=== PATIENT | male | born 1955 | race Caucasian/White ===

== ENCOUNTER 2017-11-18 08:34 | Inpatient (IN) | payer BC ==
[~2017-11-18] VITALS: Ht 188 cm; Wt 133.9 kg
--- NOTE | ~2017-11-18 | EKG ---
[address] [place] [address] ELECTROCARDIOGRAM REPORT Name: SAM HART Room #: 210-P ADM IN M.R.#: [id number] Admission: 11/18/17 Attend Phys: Macario Yi MD Discharge: Date of : 57 Report #: [id number] THIS REPORT FOR: //name// [facility] ED Test Date: 2017-11-18 Test Time: 08:41:06 Pat Name: SAM HART Department: Room: Gender: M Facility Attendant: [facility] : 1955 Requested By: Ro Fine Order Number: [id number] MD: Trey Martinez Measurements Intervals [place] Rate: 121 P: 40 DC: 139 QRS: -18 QRSD: 100 T: 117 QT: 332 QTc: 471 Interpretive Statements Sinus tachycardia Frequent premature ventricular complexes Probable inferior infarct, age indeterminate Anteroseptal infarct, old Compared to ECG 06/13/2015 06:42:44 Ventricular premature complex(es) now present Nonspecific change in the ST and T-wave segments Electronically Signed On 11-18-2017 11:55:26 CDT by rTey Martinez [email or web address] <ELECTRONICALLY SIGNED> By: Trey Martinez MD, [facility] 11/18/17 1155 [phone] Trey Martinez MD, [facility] /EPI
--- NOTE | ~2017-11-18 | EKG ---
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1955 Requested By: Ro Fine Order Number: [id number] MD: Trey Martinez Measurements Intervals [place] Rate: 103 P: 15 IN: 140 QRS: -18 QRSD: 102 T: 69 QT: 361 QTc: 473 Interpretive Statements Sinus tachycardia Inferior infarct, old Anteroseptal infarct, old Compared to ECG 06/13/2015 06:42:44 Ventricular ectopy is no longer present Electronically Signed On 11-18-2017 11:56:45 CDT by Trey Martinez [email or web address] <ELECTRONICALLY SIGNED> By: Trey Martinez MD, [facility] 11/18/17 1156 1002 1002 Trey Martinez MD, [facility] /EPI
--- NOTE | ~2017-11-18 | HC ---
[facility] [place] [address] CONSULTATION Name: SAM HART Room #: 210-P [facility] IN M.R.#: [id number] Admission: 11/18/17 Attend Phys: Macario Yi MD Discharge: Date of : 57 Report #: [id number] THIS REPORT FOR: //name// CC: APRIL Ortiz MD REASON FOR CONSULTATION: Shortness of breath. HISTORY OF PRESENT ILLNESS: The patient is a 62-year-old gentleman with a history of coronary artery disease with bypass surgery with a left internal mammary to the LAD, sequential vein graft to the first and second marginal branches, vein graft to the right coronary with combined #25 Trifecta aortic valve replacement. He has a history of diabetes, hypertension and sleep apnea, intolerant to CPAP. He now presents with a several month history of orthopnea and paroxysmal nocturnal dyspnea. His outpatient evaluation included a CT angiogram of the chest, which was negative for pulmonary embolism. Today's episode was more pronounced than other episodes. He was found to be hypoxemic and hypertensive. He was placed on BiPAP with improvement in his oxygen saturations. He denies chest heaviness or pressure or symptoms reminiscent to what he had prior to his bypass surgery. He denies lower extremity edema. He reports being on a variety of medicines, although cannot recall what they are. He does not have them with him. No history of palpitations, near syncope or syncope. He does not check his blood pressures on a regular basis. LISTED MEDICATIONS: Include amlodipine 10 mg daily, amiodarone 200 mg daily, aspirin 81 mg daily, Wellbutrin 150 mg daily, Plavix 75 mg daily, lisinopril 40 mg daily, metformin 1000 mg daily, Toprol 50 mg twice daily, rosuvastatin 40 mg daily, Flomax 0.4 mg daily. I should mention that he is not certain which of these medicines he is taking. He is certain that he is not taking all of these, this needs to be clarified. PAST MEDICAL HISTORY: Medical records have been reviewed and include a history of a total knee replacement, diabetes, aortofemoral bypass, umbilical herniorrhaphy, cholecystectomy. SOCIAL HISTORY: He is a former smoker. He works in payroll. . FAMILY HISTORY: Notable for hypertension and diabetes. REVIEW OF SYSTEMS: All systems negative except as that noted above. PHYSICAL EXAMINATION: GENERAL: A pleasant gentleman who is alert. VITAL SIGNS: Blood pressure is 156/90, heart rate of 100 and regular. He is afebrile, 6 feet 2 inches tall, 300 pounds. [facility] [address] [place] [address] CONSULTATION Name: SAM HART Room #: 210-P [facility] IN M.R.#: [id number] Admission: 11/18/17 Attend Phys: Macario Yi MD Discharge: Date of : 57 Report #: [id number] HEENT: There are neither xanthelasma, subcutaneous xanthomata, oral mucosal or digital cyanosis or kyphoscoliosis present. CHEST: Reveals diminished breath sounds at both bases. CARDIOVASCULAR: Regular rate and rhythm with normal S1, S2. Heart sounds are distant. ABDOMEN: Soft and nontender. EXTREMITIES: Without cyanosis, clubbing or edema. Radial pulses are 2+. NEUROLOGIC: He is alert with a nonfocal exam. LABORATORY DATA: Sodium 141, potassium 4.0, creatinine 1.0. ProBNP of 749. Troponin 1.63. White count 9.6, hemoglobin 17, hematocrit 51, platelet count 140. Chest x-ray demonstrates interstitial edema. EKG, sinus rhythm with poor R-wave progression. IMPRESSION: 1. [id number] probable systolic heart failure. 2. Coronary artery disease with bypass surgery (2014), with a #25 Trifecta aortic valve replacement. 3. Non-Q-wave myocardial infarction, suspect type 2 myocardial infarction related to hypertension, hypoxemia; supply demand mismatch. 4. Hypertension. 5. Diabetes with neuropathy. 6. Peripheral vascular disease. 7. Sleep apnea, intolerant to CPAP. 8. Dyslipidemia. RECOMMENDATIONS: 1. IV Lasix. 2. Confirm medications. Continued efforts towards aggressive risk factor modification. 3. Echocardiogram with Doppler. 4. Thyroid function studies. <ELECTRONICALLY SIGNED> By: Trey Martinez MD, FACC 11/19/17 1024 [id number] 1416 Trey Martinez MD, FACC /nt
--- NOTE | ~2017-11-18 | H ---
[facility] [place] [address] HISTORY AND PHYSICAL Name: SAM HART Room #: 210-P ADM IN M.R.#: [id number] Admission: 11/18/17 Attend Phys: Macario Yi MD Discharge: Date of : 57 Report #: [id number] THIS REPORT FOR: //name// [facility] REASON FOR PRESENTATION: Shortness of breath. HISTORY OF PRESENT ILLNESS: A 62-year-old with past medical history of diabetes mellitus, hypertension, coronary artery disease post-CABG x 5, post-aortic valve prosthesis. He woke up with profuse sweating and shortness of breath. The EMS reported an O2 sat of 80% on room air upon arrival. He was placed on nonrebreather mask and this has brought up his oxygen sat to 93. The patient tells me that he has been having dyspnea on exertion, orthopnea, PND. He tells me that he had seen his Cardiology couple of weeks ago and they did a CT scan for him. He is not aware of his heart ejection fraction. He denies any lower extremity edema. The sweating and shortness of breath was associated with mild midsternal chest pain. Chest pain was described as pressure with no radiation. He felt somewhat nauseated, but no vomiting. He tells me that his blood pressure is under well control. He is maintained on all appropriate medications for coronary artery disease including beta-indy, lisinopril, aspirin, and Plavix. On presentation to the Emergency Room, he was found to be in pulmonary edema with some chest x-ray finding suggestive of interstitial edema. His troponin was mildly elevated. He is being admitted for further evaluation and management. As I have stated, the patient had a CABG procedure done back in 2014. PAST MEDICAL HISTORY: 1. Diabetes mellitus. 2. Hypertension. 3. Coronary artery disease. 4. Remote TIA, stroke. 5. BPH. 6. Obstructive sleep apnea. 7. Post-cholecystectomy. 8. Post-umbilical herniorrhaphy. 9. Post-CABG. 10. Status post right total knee arthroplasty. ALLERGIES: None. SOCIAL HISTORY: No drug or alcohol abuse. He works for the [employer]. FAMILY HISTORY: His father had a heart valve replacement. REVIEW OF SYSTEMS: [address] [address] HISTORY AND PHYSICAL Name: HAILEYSAM Room #: 210-P [facility] IN M.R.#: [id number] Admission: 11/18/17 Attend Phys: Macario Yi MD Discharge: Date of : 57 Report #: [id number] GENERAL: No fever or chills. CARDIOVASCULAR: As per the history of present illness. PULMONARY: As per the history of present illness. GASTROINTESTINAL: Occasional nausea. GENITOURINARY: No frequency, no urgency. SKIN: No rash or ulcerations. NEUROLOGICAL: No weakness, no dizziness. HEMATOLOGICAL AND LYMPHATIC: No lymph node enlargement. No epistaxis. No easy bruisability. MEDICATIONS: 1. Tamsulosin. 2. Plavix. 3. Amiodarone. 4. Bystolic. 5. Amlodipine. 6. Aspirin. 7. Hydrocodone. 8. Glimepiride. PHYSICAL EXAMINATION: GENERAL: The patient was alert, oriented, in no apparent distress. VITAL SIGNS: As the following: Blood pressure was 156/94, respiratory rate 27, pulse was 104, temperature 36.7. HEAD AND NECK: Elevated jugular venous pressure. CHEST: Crackles present bilaterally. Midline scar of CABG. CARDIOVASCULAR: Regular with no rub. ABDOMEN: Soft, nontender with no hepatosplenomegaly. LOWER EXTREMITIES: No edema with a scar of his right knee replacement. LABORATORY DATA: Laboratory values reviewed. CBC is within normal other than low platelets. Troponin is mildly elevated at 1.6. Chest x-ray reviewed, consistent with pulmonary edema. ASSESSMENT, IMPRESSION AND PLAN: 1. Acute pulmonary edema. 2. Coronary artery disease with non-ST elevation myocardial infarction. 3. Hypertension. 4. Diabetes mellitus. 5. Post-aortic valve replacement. 6. Admission to the CCU. 7. Aggressive diuresis. 8. Initiate non-ST elevation myocardial infarction protocol including [address] [address] HISTORY AND PHYSICAL Name: SAM HART Room #: 210-P [facility] IN .R.#: [id number] Admission: 11/18/17 Attend Phys: Macario Yi MD Discharge: Date of : 57 Report #: [id number] beta-indy, aspirin, Lovenox. 9. Cardiac consultation. 10. Evaluate his valve and his heart with function with a cardiac echo to rule out heart failure. 11. Salt restriction. 12. Daily body weight. 13. Sliding scale insulin for the blood sugar for now and if no plans for any cardiac procedure soon, we will initiate his home blood sugar regimen; however, we will hold metformin and lisinopril for now. 14. Cardiac echo. 15. Gastrointestinal prophylaxis. <ELECTRONICALLY SIGNED> By: Macario Yi MD 11/19/17 1520 1051 1112 Macario Yi MD /nt
--- NOTE | ~2017-11-18 | 2DMMODE ---
[facility] [place] [address] 2 D/M-MODE ECHOCARDIOGRAM Name: SAM HART Room #: 210-P [facility].#: [id number] Admission: 11/18/17 Attend Phys: Macario Yi, Discharge: Date of : 57 Date of Service: 11/18/17 1203 Report #: [id number] THIS REPORT FOR: //name// APPROVED REPORT Study performed: 11/18/2017 10:52:33 EXAM: Comprehensive 2D, Doppler, and color-flow Echocardiogram Patient Location: ER Status: on-call BSA: 2.32 HR: 103 bpm BP: 156/94 mmHg Other Information Study Quality: Fair Technically limited study due to heavy breathing, obesity. Indications Short of breath, NSTEMI, acute on chronic heart failure. Hx: CABG, AVR Echo Enhancing Agent Indication: Endocardial border delineation Agent(s) / Amount(s) Used: Optison 7 cc 2D Dimensions RVDd: 46.55 mm LVEF(%): 31.37 (>50%) IVSd: 13.31 (7-11mm) LVDd: 63.10 mm PWd: 12.57 (7-11mm) LVDs: 53.54 (25-40mm) Aortic Root: 39.55 mm Foreman's LVEF: 31.37 % Volumes Left Atrial Volume (Systole) Single Plane 4CH: 87.41 mL Single Plane 2CH: 119.57 mL LA ESV Index: 47.00 mL/m2 Aortic Valve AoV Peak Guru.: 2.90 m/s AO Peak Gr.: 33.72 mmHg LVOT Max P.13 mmHg [facility] [address] [address] 2 D/M-MODE ECHOCARDIOGRAM Name: SAM HART Room #: 210-P [facility].#: [id number] Admission: 11/18/17 Attend Phys: Macario Yi, Discharge: Date of : 57 Date of Service: 11/18/17 1203 Report #: [id number] AO Mean Gr.: 22.37 mmHg AO V2 Mean: 2.27 m/s LVOT Max V: 0.88 m/s AO V2 VTI: 53.40 cm Mitral Valve E/A Ratio: 2.1 MV Decel. Time: 98.83 ms MV E Max Guru.: 1.13 m/s MV A Guru.: 0.54 m/s MV PHT: 28.66 ms IVRT: 39.22 ms Pulmonary Vein P Vein S: 0.35 m/s P Vein D: 0.49 m/s P Vein S/D Ratio: 0.71 Tricuspid Valve RAP Estimate: 10.00 mmHg Left Ventricle Left ventricle is moderately dilated. Mild concentric left ventricular hypertrophy. Left ventricular systolic function is moderate to severely decreased. LVEF is 30-35%. Severe diastolic dysfunction is present (restrictive filling). Right Ventricle Right ventricle is at the upper limits of normal. Right ventricle is mildly hypokinetic. Atria Left atrium is moderately dilated. Right atrium is at the upper limits of normal. Aortic Valve Bioprosthetic aortic valve is present. #25 Trifecta. Peak velocity of 2.9m/s; PPG of 34mmHg and a MPG of 21mmHg. Trace aortic regurgitation. Mitral Valve Mild mitral annular calcification. Mild mitral regurgitation. Tricuspid Valve The tricuspid valve is normal in structure. Trace tricuspid regurgitation. Unable to assess PA pressure. [facility] [address] [place] [address] 2 D/M-MODE ECHOCARDIOGRAM Name: SAM HART Room #: 210-P [facility] IN .R.#: [id number] Admission: 11/18/17 Attend Phys: Macario Yi, Discharge: Date of : 57 Date of Service: 11/18/17 1203 Report #: [id number] Pulmonic Valve Pulmonic valve is not well visualized. Great Vessels Aortic root is mildly dilated at 4.0cm. IVC is dilated and collapses 50% with inspiration. Pericardium There is no pericardial effusion. <Conclusion> Left ventricular systolic function is moderate to severely decreased. LVEF is 30-35%. Severe diastolic dysfunction is present (restrictive filling). Both atria are moderately dilated. Bioprosthetic aortic valve is present. #25 Trifecta. Peak velocity of 2.9m/s; PPG of 34mmHg and a MPG of 21mmHg. Trace aortic regurgitation. Mild mitral annular calcification. Mild mitral regurgitation. Pulmonary artery pressure could not be reliably ascertained There is no pericardial effusion. <ELECTRONICALLY SIGNED> By: Trey Martinez MD, [facility] 11/18/171202 02 02 Trey Martinez MD, FAC /INF
[~2017-11-18 08:34] MED LIST: ADULT LOW DOSE81 MG OR; ADULT LOW DOSE81 MG PO; AMARYL1 MG PO; AMARYL2 MG PO; AMARYL4 MG PO; AMLODIPINE BESYL5 MG PO; ASPIR 8181 MG PO; ASPIRIN81 M2 PO; ATIVAN1 MG PO; ATIVAN2 MG PO; AVANDIA; AVANDIA8 MG PO; BYSTOLIC10 MG; BYSTOLIC10 MG PO; BYSTOLIC2.5 MG; CARVEDILOL12.5 MG PO; CARVEDILOL25 MG PO; CELEXA 20 MG TA20 M1 PO; COREG PO; COUMADIN 5 MG TA5 M1 PO; CRESTOR40 MG PO; CRESTOR5 MG; ENDUR-ACIN500 MG PO; ESOMEPRAZOLE MA40 MG PO; EX-LAX MAXIMUM25 MG PO; FERREX 150 PLU1 EAC1 PO; FISHOIL; FLOMAX PO; FLOMAX0.4 MG; FLOMAX0.4 MG PO; FLONASE 0.05%50 MCG; FORTAMET1000 MG PO; GLUCOPHAGE XR500 MG PO; GLUCOPHAGE1000 MG PO; GLUCOPHAGE500 MG PO; HYDROCHLOROTH12.5 MG PO; HYDROCHLOROTHIA25 M2; HYDROCODONE-AP1 EAC6 PO; JANUVIA100 MG OR; JANUVIA100 MG PO; KEFLEX500 MG PO; KLOR-CON 1010 MEQ PO; LIPITOR; LIPITOR80 MG PO; LISINOPRIL; LISINOPRIL40 MG PO; LOPRESSOR50 PO; LOVAZA1000 MG PO; METFORMIN; METOPROLOL SUCC50 MG PO; NIASPAN ER 101000 M1 PO; NIASPAN PO; NITROGLYCERIN0.4 MG SUBLING; NORVASC 2.5 MG2.5 M1 OR; NORVASC 5 MG TAB5 MG PO; NORVASC10 MG; NORVASC10 MG PO; PACERONE 200 M200 M1 PO; PLAVIX 75 MG TA75 M1 PO; PLAVIX 75 MG TA75 MG OR; PLAVIX 75 MG TA75 MG PO; PRINIVIL20 MG PO; RANITIDINE HCL300 MG PO; STOOL SOFTENER240 MG PO; TAMSULOSIN HCL0.4 M1 PO; TAMSULOSIN HCL0.4 MG PO; WELLBUTRIN SR150 MG PO; WELLBUTRIN XL150 M1 PO; ZANAFLEX4 MG PO; ZANTAC 150MG T150 MG PO; ZESTRIL20 MG OR; ZESTRIL40 MG
[2017-11-18 08:47] VITALS: BP 151/103
[2017-11-18 08:52] LABS: ABSOLUTE NEUTROPHILS 5.8 thou/uL (1.4-8.2); BASOPHILS 0.3 % (0.0-2.0); EOSINOPHILS 0.5 % (0.0-3.0); HEMATOCRIT 51.3 % (42.0-52.0); HEMOGLOBIN 17.9 gm/dL (14.0-18.0); LYMPHOCYTES 31.1 % (24.0-44.0); MCHC 34.9 g/dL (28.0-37.0); MCV 97.4 fL (80.0-100.0); MONOCYTES 7.9 % (1.0-8.0); PLATELET COUNT 140 thou/uL (150-400); POLYS 60.2 % (36.0-66.0); RBC 5.27 mil/uL (4.50-6.00); RDW 14.9 % (10.5-14.5); WBC 9.6 thou/uL (4.0-11.0)
[2017-11-18 08:59] LABS: CALCIUM 9.7 mg/dL (8.5-10.1)
[2017-11-18 09:06] LABS: APTT 24.1 Seconds (24.5-32.8)
[2017-11-18 09:08] LABS: BE(vivo) -3.8 mmol/L (-2 to +3); HCO3 20.7 mmol/L (22.0-26.0); PCO2 36.8 mmHg (35.0-45.0); PO2 91.9 mmHg (80.0-100.0)
[2017-11-18 09:12] LABS: TROPONIN-I 1.63 ng/mL (<0.06)
[2017-11-18 10:15] VITALS: BP 151/103
[2017-11-18 12:04] VITALS: BP 145/96
[2017-11-18 12:35] VITALS: BP 147/108
[2017-11-18 13:36] LABS: URINE BILIRUBIN NEGATIVE (Negative); URINE BLOOD TRACE (Negative); URINE CLARITY CLEAR; URINE COLOR YELLOW; URINE GLUCOSE-RANDOM* TRACE (Negative); URINE KETONES TRACE (Negative); URINE LEUKOCYTES-REFLEX NEGATIVE (Negative); URINE NITRITE-REFLEX NEGATIVE (Negative); URINE PROTEIN (DIPSTICK) 2+ (Negative); URINE SPECIFIC GRAVITY 1.025 (1.005-1.035)
[2017-11-18 13:49] LABS: BACTERIA-REFLEX None Seen /HPF (None Seen); CRYSTALS None Seen /LPF (None Seen); HYALINE CASTS 4-10 Moderate /LPF (None Seen); MUCUS >6 Heavy strn/LPF (None Seen); SQUAMOUS 0-3 Few /LPF (0-3); URINE RBC 0-2 Rare /HPF (0-2); URINE WBC-REFLEX 0-5 Rare /HPF (0-5)
[2017-11-18 17:46] VITALS: BP 144/90
[2017-11-18 20:26] VITALS: BP 92/58
[2017-11-19 00:17] VITALS: BP 131/86
[2017-11-19 03:08] LABS: HEMATOCRIT 43.5 % (42.0-52.0); MCH 33.3 pg (26.0-34.0); MCHC 34.1 g/dL (28.0-37.0); MCV 97.7 fL (80.0-100.0); RBC 4.45 mil/uL (4.50-6.00); RDW 15.6 % (10.5-14.5); WBC 6.1 thou/uL (4.0-11.0)
[2017-11-19 03:12] LABS: HEMOGLOBIN 14.8 gm/dL (14.0-18.0)
[2017-11-19 03:24] LABS: CHOLESTEROL 173 mg/dL (<200); HDL CHOLESTEROL 58 mg/dL (>40); LDL CHOLESTEROL 71 mg/dL (<100); TRIGLYCERIDE 221 mg/dL (<150); VLDL 44 mg/dL (<40)
[2017-11-19 03:25] LABS: ALBUMIN 3.1 g/dL (3.4-5.0); CALCIUM 8.7 mg/dL (8.5-10.1); CREATININE 0.9 mg/dL (0.7-1.3); POTASSIUM 3.7 mmol/L (3.5-5.1); TOTAL BILIRUBIN 0.8 mg/dL (<0.1-1.0); TOTAL PROTEIN 6.4 g/dL (6.4-8.2)
[2017-11-19 03:32] LABS: SERUM ASSESSMENT Clear
[2017-11-19 04:16] VITALS: BP 113/64
[2017-11-19 08:02] VITALS: BP 120/84
[2017-11-19 11:18] LABS: CALCIUM 9.2 mg/dL (8.5-10.1); MAGNESIUM 1.5 mg/dL (1.8-2.4); POTASSIUM 3.8 mmol/L (3.5-5.1)
[2017-11-19 11:39] VITALS: BP 120/98
[2017-11-19 16:04] VITALS: BP 117/72
[2017-11-19 19:44] VITALS: BP 114/59
[2017-11-20 03:09] LABS: HEMATOCRIT 43.9 % (42.0-52.0); HEMOGLOBIN 14.9 gm/dL (14.0-18.0); MCH 33.3 pg (26.0-34.0); MCV 98.1 fL (80.0-100.0); RBC 4.47 mil/uL (4.50-6.00); RDW 15.3 % (10.5-14.5); WBC 6.5 thou/uL (4.0-11.0)
[2017-11-20 03:30] LABS: ALBUMIN 3.2 g/dL (3.4-5.0); CALCIUM 9.2 mg/dL (8.5-10.1); CREATININE 1.1 mg/dL (0.7-1.3); POTASSIUM 4.1 mmol/L (3.5-5.1); TOTAL BILIRUBIN 0.7 mg/dL (<0.1-1.0); TOTAL PROTEIN 6.5 g/dL (6.4-8.2)
[2017-11-20 04:20] VITALS: BP 93/50
[2017-11-20 07:10] VITALS: BP 105/67
[2017-11-20] MEDS ORDERED: POTASSIUM20 PO (08:24)
[2017-11-20] MEDS ORDERED: DEMADEX20 MG PO (08:24)
[2017-11-20] MEDS ORDERED: CARVEDILOL25 MG PO (12:11)
[2017-11-20 12:22] VITALS: BP 108/56
[2017-11-20 15:51] VITALS: BP 108/56
[2017-11-20 16:32] VITALS: BP 95/74
== END 2017-11-20 16:42 | disposition home or self-care (01) | DRG 280 ==
LOC: ER 08:34 → EROBS 10:02 → 2N 10:02
PROVIDERS: Emergency Medicine; Hospitalist; Internal Medicine
DX: I21.4 Non-ST elevation (NSTEMI) myocardial infarction (principal); I50.43 Acute on chronic combined systolic (congestive) and diastolic (congestive) heart failure; E66.9 Obesity, unspecified; R00.0 Tachycardia, unspecified; E78.5 Hyperlipidemia, unspecified; E11.51 Type 2 diabetes mellitus with diabetic peripheral angiopathy without gangrene; E11.40 Type 2 diabetes mellitus with diabetic neuropathy, unspecified; N40.0 Benign prostatic hyperplasia without lower urinary tract symptoms; G47.33 Obstructive sleep apnea (adult) (pediatric); Z96.651 Presence of right artificial knee joint; D69.6 Thrombocytopenia, unspecified; I25.10 Atherosclerotic heart disease of native coronary artery without angina pectoris; I11.0 Hypertensive heart disease with heart failure; Z68.37 Body mass index [BMI] 37.0-37.9, adult; Z95.1 Presence of aortocoronary bypass graft; Z90.49 Acquired absence of other specified parts of digestive tract; Z87.891 Personal history of nicotine dependence; Z83.3 Family history of diabetes mellitus; Z82.49 Family history of ischemic heart disease and other diseases of the circulatory system; Z95.2 Presence of prosthetic heart valve; Z86.73 Personal history of transient ischemic attack (TIA), and cerebral infarction without residual deficits; Z79.82 Long term (current) use of aspirin; Z79.899 Other long term (current) drug therapy
CPT/HCPCS: 10081

== ENCOUNTER 2018-08-04 15:21 | Emergency (ER) | payer OTHER ==
[~2018-08-04] VITALS: Ht 188 cm; Wt 127.0 kg
[~2018-08-04 15:21] MED LIST changes: +DEMADEX20 MG PO; +POTASSIUM20 PO
[2018-08-04] MEDS ORDERED: PROTONIX 20 MG20 M1 PO (15:50)
[2018-08-04 16:07] LABS: ABSOLUTE NEUTROPHILS 8.4 thou/uL (1.4-8.2); BASOPHILS 0.8 % (0.0-2.0); EOSINOPHILS 0.1 % (0.0-3.0); HEMATOCRIT 39.9 % (42.0-52.0); HEMOGLOBIN 13.8 gm/dL (14.0-18.0); LYMPHOCYTES 11.5 % (24.0-44.0); MCH 34.2 pg (26.0-34.0); MCHC 34.6 g/dL (28.0-37.0); MCV 98.8 fL (80.0-100.0); MONOCYTES 5.1 % (1.0-8.0); PLATELET COUNT 137 thou/uL (150-400); POLYS 82.5 % (36.0-66.0); RBC 4.04 mil/uL (4.50-6.00); RDW 14.5 % (10.5-14.5); WBC 10.2 thou/uL (4.0-11.0)
[2018-08-04 16:16] LABS: CALCIUM 8.4 mg/dL (8.5-10.1); CREATININE 1.2 mg/dL (0.7-1.3); POTASSIUM 3.7 mmol/L (3.5-5.1)
[2018-08-04 16:22] LABS: ALBUMIN 3.3 g/dL (3.4-5.0); TOTAL BILIRUBIN 0.7 mg/dL (<0.1-1.0); TOTAL PROTEIN 6.6 g/dL (6.4-8.2)
[2018-08-04 17:19] LABS: URINE BLOOD NEGATIVE (Negative); URINE CLARITY CLEAR; URINE COLOR YELLOW; URINE GLUCOSE-RANDOM* NEGATIVE (Negative); URINE KETONES 2+ (Negative); URINE LEUKOCYTES-REFLEX NEGATIVE (Negative); URINE NITRITE-REFLEX NEGATIVE (Negative); URINE PROTEIN (DIPSTICK) NEGATIVE (Negative)
[2018-08-04 17:21] LABS: ICTOTEST (BILI CONFIRMATORY) Negative (Negative); URINE BILIRUBIN NEGATIVE (Negative)
[2018-08-04] MEDS ORDERED: CIPROFLOXACIN500 M1 PO (17:46)
[2018-08-04] MEDS ORDERED: FLAGYL500 M1 PO (17:46)
[2018-08-04] MEDS ORDERED: NORCO 7.5-3251 EACH PO (17:46)
[2018-08-04] MEDS ORDERED: ZOFRAN ODT4 MG PO (17:46)
[2018-08-04 18:43] VITALS: BP 144/69
== END 2018-08-04 18:50 | disposition home or self-care (01) ==
LOC: ER 15:21
PROVIDERS: Emergency Medicine
DX: K52.9 Noninfective gastroenteritis and colitis, unspecified (principal); I10 Essential (primary) hypertension; E11.9 Type 2 diabetes mellitus without complications; Z95.1 Presence of aortocoronary bypass graft; Z90.49 Acquired absence of other specified parts of digestive tract; Z86.73 Personal history of transient ischemic attack (TIA), and cerebral infarction without residual deficits

== ENCOUNTER → 2018-09-13 | Outpatient (CLI) | payer OTHER ==
[~2018-09-13] VITALS: Ht 188 cm; Wt 122.5 kg
[~2018-09-13] MED LIST changes: +CIPROFLOXACIN500 M1 PO; +COREG25 MG PO; +FLAGYL500 M1 PO; +HUMULIN N100 UNIT/1 SUBQ; +IMDUR 60 MG TAB60 M1 PO; +NORCO 7.5-3251 EACH PO; +PROTONIX 20 MG20 M1 PO; +PROTONIX40 M1 PO; +ZOFRAN ODT4 MG PO
[2018-09-13 06:54] LABS: CREATININE 2.1 mg/dL (0.7-1.3)
== END ==
LOC: MRI 05:27 → TBA 05:27 → MRI 12:42
PROVIDERS: Family Medicine
DX: R42 Dizziness and giddiness (principal); H53.9 Unspecified visual disturbance; I69.959 Hemiplegia and hemiparesis following unspecified cerebrovascular disease affecting unspecified side
CPT/HCPCS: 50010